=== PATIENT | female | born 2000 | race Caucasian/White ===

== ENCOUNTER 2023-07-22 13:33 | Outpatient (REF) | payer BC, SELFPAY ==
--- NOTE | 2023-07-22 13:10 | PAPFT_PTH ---
PATIENT: Roxana Olmos LOC: [facility] U#:[id number] AGE/SX: 22/F ROOM: RE07/22/[address]: Rosario Don NP : [id number] BED: DIS: 07/22/2023 SPEC #: [id number] RECD: 07/22/23 18:21 STATUS: ALESSIA REAldair #: [id number] MARILYN: 07/22/23 13:[address]: Rosario Don NP DEPT: [facility] Cytology RECD BY: Elizabeth Landry Tissues: 1 - CX/ENDOCX FOR PAP SMEARS Procedures: PAP THIN PREP/UVM Screening Comments: [id number] (CHLAMYDIA/GC) (UNSATISFACTORY FOR EVALUATION)
[2023-07-23 15:16] LABS: Chlamydia Result Negative (Negative); GC Result Negative (Negative)
== END 2023-07-22 13:34 | disposition home or self-care (01) ==
LOC: LBN 13:33
PROVIDERS: Visit Provider Nurse Practitioner Women's Health
DX: Z11.3 Encounter for screening for infections with a predominantly sexual mode of transmission (principal); Z12.4 Encounter for screening for malignant neoplasm of cervix; R87.615 Unsatisfactory cytologic smear of cervix
CPT/HCPCS: 87491; 87591; 88142

== ENCOUNTER 2024-02-12 14:58 | Emergency (ER) | payer BC, SELFPAY ==
[2024-02-12 15:13] VITALS: BP 112/78; PULSE 98; RESP 16; TEMP 37.1; O2SAT 98
--- NOTE | 2024-02-12 15:44 | ED.GENADUL_ITS ---
Discharge Plan Disposition Patient Disposition: Home Condition: Stable Discharge Details Clinical Impression: Insect bites Primary Care Provider: Unknown,Unknown ED Provider: Blane Callahan Home Meds and New Rx's Prescriptions: No Action No Known Home Meds Discharge Instructions Instructions: Insect Bite or Sting (ED) Additional Instructions: You were seen in the emergency department for the small bites on your left arm, they appear to be in a linear fashion that is similar to bedbugs, I do not suspect any bat bite at this time typically bat exposures are noted with a bat flying around the room or finding a bat in a home that you have slept in already. Please contact your landlord or get some assistance with checking the attic to make sure there are no baths in the attic but it appeared your attic door was intact and you have not been sleeping with any unscreened open windows. Please check for bedbugs in any of your bedding and clothing, continue the antibiotics provided by [facility] and return for any worsening of redness, developing of red streaking up the arm or fever or drainage of pus from the area. If you do suspect any bat exposure after thorough check of the home please return to the ED at once for initiation of rabies prophylaxis. Discharge Data Discharge Date/Time-TO BE ENTERED AT DEPARTURE: 02/12/24 16:25 HPI General Date/Time Provider Initiated Documentation: 02/12/24 15:12 . HPI Narrative: 23 year-old female presents to ED today by POV/ambulating with a chief complaint of small bites in her L arm, noticed overnight with some minor bleeding with onset last night at some point. Quality described as small tiny bites, some in a linear line to A/C and elbow of L arm, no radiation to severe itching, red streaking, purulent drainage, known bats in the home, has not been sleeping with windows open, no holes into attic in apartment. Severity is described as mild. Palliating factors include started on Augmentin by [facility]. Provoking factors include unknown. Events leading up to the incident/Associated Symptoms: Patient states she just moved into the apartment. [facility] RN stated she may need evaluation for bat bite for unknown reasons. Patient not anticoagulated. Related Data Home Medications Medication Instructions Recorded Confirmed Unknown [No Known Home Meds] 07/22/23 02/12/24 Allergies Allergy/AdvReac Type Severity Reaction Status Date / Time No Known Allergies Allergy Verified 02/12/24 15:11 General Stated Complaint: InsectBite HUMBERTO: 4 Review of Systems All systems reviewed & are unremarkable except as noted in HPI and below Exam Narrative Exam Narrative: GENERAL APPEARANCE: Well-nourished, non-toxic, awake and alert, atraumatic, no acute distress. SKIN: Warm, pink, dry, intact, tiny bite caban in linear lines like insect bites with mild erythema to L elbow around two of the bites, appears linear in nature, no fang twin puncture caban- more consistent with possible bed bugs. HEAD: Normocephalic, atraumatic, normal hair distribution for gender/age. EYES: Pupils PERRLA, EOMs intact without nystagmus, normal conjunctiva, no exudates on lids/lashes. ENT: Nares patent, no circumoral cyanosis, no facial swelling NECK: Supple, trachea midline, painless cervical ROM. LUNGS/CHEST: Lungs CTA bilaterally, non-labored respirations, normal A/P diameter, symmetrical expansion, no chest wall deformity HEART (CV/PV): Regular rate and rhythm without murmur, no peripheral edema, no JVD. ABDOMEN: Soft, non-distended, no guarding. MSK: Normal ROM, no swelling/deformity to bilateral UEs or LEs, moving all extremities without weakness, no cyanosis, spine midline without tenderness, normal curvature. NEURO: Mental Status AAOx4 - alert to person, place, time, events No facial droop, no forehead involvement. Motor: No focal weakness - strength 5/5 in bilateral UEs and LEs, proximal and distal, symmetric. Sensory: sensation intact to light touch globally. Gait normal: patient ambulated without ataxia into ED room. PSYCH: euthymic, cooperative, pleasant, appropriate speech Course Vital Signs Vital signs: Vital Signs Temperature 37.1 C 02/12/24 15:13 Pulse 98 H 02/12/24 15:13 Respiratory Rate 16 02/12/24 15:13 Blood Pressure 112/78 02/12/24 15:13 Pulse Oximetry 98 02/12/24 15:13 Temperature 37.1 C 02/12/24 15:13 Temperature Source Temporal Artery Scan 02/12/24 15:13 Pulse 98 H 02/12/24 15:13 Respiratory Rate 16 02/12/24 15:13 Respiratory Effort Normal, Non-Labored 02/12/24 15:15 Blood Pressure 112/78 02/12/24 15:13 Pulse Oximetry 98 02/12/24 15:13 Oxygen Delivery Method Room Air 02/12/24 15:13 Oxygen Flow Rate 0 02/12/24 15:13 Pain Level 5 02/12/24 15:13 Medical Decision Making This dictation utilizes [id number] dictation software and may contain unedited grammatical errors. 23 y/o F presents to ED today with a chief complaint of seen at [facility] today- had some unknown tiny bite caban last night overnight while sleeping, no bats seen in home, no holes into attic space- patternmaker sample at [facility] stated she may need eval for possible rabies prophylaxis- no fever. Patients' medical history: negative, otherwise healthy. Family and social history: lives i ndependently, recently was out of town. Pertinent exam findings / vital signs include tiny bite caban in linear lines like insect bites with mild erythema to L elbow around two of the bites, appears linear in nature, no fang twin puncture caban- more consistent with possible bed bugs.. Differential / pathologies of concern include bed bugs, insect bites, unlikely bat exposure, cellulitis. Diagnostic studies of: -none. Interventions of: -none - on Augmentin, adequate for mild cellulitis at this time. ED Course/Assessment/Plan: Healthy 23-year-old female presents with some minor likely insect bites to left arm antecubital and elbow area with mild erythema likely mild cellulitis and was started on Augmentin by [facility]. The RN at [facility] expressed concern over possible bat bite as there are no fang punctures, typically bat bites or not seen as there teeth are so tiny it does not leave caban and typically prophylaxis is initiated when there was a bat found in the home that someone has slept in and that bite cannot be ruled out. I counseled the patient on contacting her landlord or having someone look in the attic to make sure there are no baths in the home as well as to try to rule out any bedbug infestation prior to initiating rabies prophylaxis, patient agreed with this plan and if there is any concern for bat exposure she will return within 24 to 48 hours for initiation of rabies prophylaxis. Findings not consistent with bat exposure, severe cellulitis, likely bedbug bites or other insect infestation bites. Disposition of insect bites. Patient verbalized understanding of the plan and return to ED criteria and engaged in shared decision making. Medical Records Medical records reviewed: Yes I reviewed the patient's medical records. Quality:SDOH Health Related Social Needs: No Data to Display PFSH All Active Problems (Updated 02/12/24 @ 16:19 by MEREDITH Harvey) Insect bites (Acute) Family History (Updated 07/22/23 @ 13:11 by Alysa Cha) Other Diabetes Social History (Updated 07/22/23 @ 13:57 by Rosario Don NP) Smoking/Tobacco Use Status: Never Smoking risk assessment performed?: Yes Alcohol Intake: current Drug use: Rarely Substance use type: marijuana Household members: family Housing: apartment current occupation: works at a [employer] Sexually active: Yes Do you think of yourself as: lesbian/houser/homosexual Current gender identity: female What type of physical activity do you participate in: regular exercise Duration: 30-45 minutes/day Frequency: 3-4 times per week Seatbelt use: always Helmet use: Yes Drive intox or ride w/intox set key driver: No Do you feel safe at home: Yes Do you feel safe in your relationship?: Yes Female Reproductive History Menstrual Duration of menses: 3-5 days control method: none History History 0 Para Hx # Term Pregnancies Multiple births Hx # Pregnancies Ectopic pregnancies AB induced Hx Number of Living Children AB spontaneous
== END 2024-02-12 16:25 | disposition home or self-care (01) ==
PROVIDERS: Emergency Provider Physician Assistant
DX: S50.362A Insect bite (nonvenomous) of left elbow, initial encounter (principal); W57.XXXA Bitten or stung by nonvenomous insect and other nonvenomous arthropods, initial encounter; Y93.89 Activity, other specified; Y92.013 Bedroom of single-family (private) house as the place of occurrence of the external cause
CPT/HCPCS: 99282; 99284